=== PATIENT | male | born 1980 | race Caucasian/White ===

== ENCOUNTER 2017-08-08 10:29 | Emergency (ER) | END 2017-08-08 14:07 | disposition home or self-care (01) ==

== ENCOUNTER 2017-09-15 08:09 | Emergency (ER) | END 2017-09-15 09:12 | disposition home or self-care (01) ==

== ENCOUNTER 2017-09-30 22:33 | Emergency (ER) | END 2017-10-01 01:48 | disposition home or self-care (01) ==